=== PATIENT | male | born 1955 | race Caucasian/White ===

== ENCOUNTER 2022-03-15 10:25 | Day surgery (SDC) | payer MEDICARE ==
[2022-03-10 10:20] LABS: BASOPHILS % (AUTO) 0.4 % (0-1); EOSINOPHILS # (AUTO) 0.2 X10'3 (0-0.9); EOSINOPHILS % (AUTO) 3.2 % (0-6); HEMATOCRIT 40.9 % (42.0-52.0); HEMOGLOBIN 13.1 g/dl (14.0-17.9); LYMPHOCYTES # (AUTO) 0.8 X10'3 (1.1-4.8); LYMPHOCYTES % (AUTO) 14.1 % (21-51); MEAN CORPUSCULAR HEMOGLOBIN 29.1 PG (27.0-31.0); MEAN CORPUSCULAR HGB CONC 31.9 g/dL (33.0-36.5); MEAN CORPUSCULAR VOLUME 91.2 FL (78-98); MONOCYTES # (AUTO) 0.5 X10'3 (0-0.9); MONOCYTES % (AUTO) 9.4 % (2-12); NEUTROPHILS # (AUTO) 3.9 X10'3 (1.8-7.7); NEUTROPHILS % (AUTO) 72.9 % (42-75); PLATELET COUNT 225 X10'3 (140-440); RED BLOOD COUNT 4.49 X10'6 (4.70-6.10); WHITE BLOOD COUNT 5.4 X10'3 (4.5-11.0)
[2022-03-10 10:30] LABS: APTT 26 SECONDS (22-32)
[2022-03-10 10:32] LABS: ALBUMIN 3.8 G/DL (3.4-5.0); ANION GAP 6 (8-16); BLOOD UREA NITROGEN 43 MG/DL (7-18); CALCIUM 8.9 MG/DL (8.5-10.1); CHLORIDE 105 MMOL/L (99-107); CHOL/HDL RATIO 2.8 (0.00-4.99); CHOLESTEROL 113 MG/DL (0-200); CREATININE 1.87 MG/DL (0.60-1.10); GLUCOSE 105 MG/DL (70-104); HDL CHOLESTEROL 40 MG/DL (35-60); LDL CHOLESTEROL 64 MG/DL (50-100); POTASSIUM 4.9 MMOL/L (3.5-5.1); SODIUM 138 MMOL/L (135-145); TOTAL CARBON DIOXIDE 27.3 MMOL/L (24-32); TRIGLYCERIDES 69 MG/DL (20-135); eGFR 36 ML/MIN
[~2022-03-15] VITALS: Ht 185.4 cm; Wt 85.3 kg
[2022-03-15] VITALS (7 sets, daily range): BP systolic 126–160; BP diastolic 63–79
[~2022-03-15 10:25] MED LIST: AMIO200T67 PO; ASPI-1071 PO; ATOR10TA PO; HYDR-3972 PO; LOP25T PO; MULT-1085 PO; MV-M1TAB19 PO; OMEP40CA21 PO; RIVA15TA PO; SENN-283 PO; SYN0.088T PO; TACR1CAP2 PO; TACR1CAP24 PO
[2022-03-15] MEDS ORDERED: PANT40TA54 PO (10:49)
[2022-03-15] MEDS ORDERED: LOSA100T57 PO (10:49)
[2022-03-15] MEDS ORDERED: ASPI81TA52 PO (10:49)
[2022-03-15] MEDS ORDERED: CHOL200074 PO (10:49)
[2022-03-15] MEDS ORDERED: METO-395 PO (10:49)
[2022-03-15] MEDS ORDERED: ATOR10TA70 PO (10:49)
[2022-03-15] MEDS ORDERED: LORazepam 0.5 MG tablet PO PRN (11:25)
[2022-03-15] MEDS ORDERED: normal saline 1,000 ML IV SCH (11:25)
[2022-03-15] MEDS ORDERED: diphenhydrAMINE 25mg capsule PO PRN (11:25)
[2022-03-15] MEDS ORDERED: verapamil 2.5 mg/ml inj IV ONE (11:33)
[2022-03-15] MEDS ORDERED: midazolam 1 mg/ML 2ml injection ONE (11:33)
[2022-03-15] MEDS ORDERED: heparin 1,000unit/ml 10ml vial 10 ML ONE (11:34)
[2022-03-15] MEDS ORDERED: iohexol 350MG/ML 100ml bottle IV ONE ×2 (11:34→13:26)
[2022-03-15] MEDS ORDERED: LIDOcaine 1% (10mg/ml) 2ml vial ONE (11:34)
[2022-03-15] MEDS ORDERED: fentaNYL/PF 50MCG/1 ML 2ML syringe ONE (11:34)
[2022-03-15] MEDS ORDERED: nitroGLYCERIN-Tridil 50MG/D5W 250 ML IV ONE (11:34)
[2022-03-15] MEDS ORDERED: LIDOcaine 1% 30ml preserv. free vial ONE (13:15)
[2022-03-15] MEDS ORDERED: hydrALAZINE 20mg/ml inj. IV ONE (13:43)
== END 2022-03-15 16:05 | disposition home or self-care (01) ==
LOC: SSTAY O 10:25
PROVIDERS: ATTEND Student in an Organized Health Care Education/Training Program
DX: I25.810 Atherosclerosis of coronary artery bypass graft(s) without angina pectoris (principal); I13.0 Hypertensive heart and chronic kidney disease with heart failure and stage 1 through stage 4 chronic kidney disease, or unspecified chronic kidney disease; I50.22 Chronic systolic (congestive) heart failure; N18.9 Chronic kidney disease, unspecified; I48.91 Unspecified atrial fibrillation; K21.9 Gastro-esophageal reflux disease without esophagitis; Z94.4 Liver transplant status; Z79.899 Other long term (current) drug therapy
CPT/HCPCS: 36415; 76937; 80048; 80061; 85025; 85610; 85730; 93005; 93459; 99152; 99153; C1760; C1769; C1894; J0360; J1644; J2250; J3010; J3490; J7030; Q0163; Q9967; A6258; C1725

== ENCOUNTER 2022-03-23 18:35 | Emergency (ER) | payer MEDICARE ==
[~2022-03-23] VITALS: Ht 185.4 cm; Wt 84.9 kg
[~2022-03-23 18:35] MED LIST changes: -AMIO200T67 PO; -ASPI-1071 PO; +ASPI81TA52 PO; -ATOR10TA PO; +ATOR10TA70 PO; +CHOL200074 PO; -HYDR-3972 PO; -LOP25T PO; +LOSA100T57 PO; +METO-395 PO; -MV-M1TAB19 PO; -OMEP40CA21 PO; +PANT40TA54 PO; -RIVA15TA PO; -SENN-283 PO; -TACR1CAP2 PO
[2022-03-23 18:51] LABS: BASOPHILS % (AUTO) 0.5 % (0-1); EOSINOPHILS # (AUTO) 0.1 X10'3 (0-0.9); HEMATOCRIT 38.1 % (42.0-52.0); HEMOGLOBIN 12.4 g/dl (14.0-17.9); LYMPHOCYTES # (AUTO) 1.2 X10'3 (1.1-4.8); MEAN CORPUSCULAR HEMOGLOBIN 29.9 PG (27.0-31.0); MEAN CORPUSCULAR HGB CONC 32.5 g/dL (33.0-36.5); MEAN CORPUSCULAR VOLUME 91.8 FL (78-98); MEAN PLATELET VOLUME 8.6 FL (7.4-10.4); MONOCYTES # (AUTO) 0.7 X10'3 (0-0.9); MONOCYTES % (AUTO) 10.2 % (2-12); NEUTROPHILS # (AUTO) 4.9 X10'3 (1.8-7.7); NEUTROPHILS % (AUTO) 70.3 % (42-75); PLATELET COUNT 242 X10'3 (140-440); RED BLOOD COUNT 4.15 X10'6 (4.70-6.10); RED CELL DISTRIBUTION WIDTH 17.3 % (11.5-14.5); WHITE BLOOD COUNT 6.9 X10'3 (4.5-11.0)
[2022-03-23 19:00] VITALS: BP 128/75
[2022-03-23 19:07] LABS: ALANINE AMINOTRANSFERASE 15 U/L (12-78); ALBUMIN 3.7 G/DL (3.4-5.0); ALKALINE PHOSPHATASE 84 IU/L (46-116); ANION GAP 10 (8-16); ASPARTATE AMINO TRANSFERASE 14 U/L (10-37); BILIRUBIN,TOTAL 0.4 MG/DL (0.1-1.0); BLOOD UREA NITROGEN 37 MG/DL (7-18); BUN/CREATININE RATIO 22.3 (5.4-32.0); CALCIUM 9.1 MG/DL (8.5-10.1); CHLORIDE 103 MMOL/L (99-107); CREATININE 1.66 MG/DL (0.60-1.10); GLUCOSE 113 MG/DL (70-104); POTASSIUM 4.4 MMOL/L (3.5-5.1); SODIUM 139 MMOL/L (135-145); TOTAL CARBON DIOXIDE 26.4 MMOL/L (24-32); TOTAL PROTEIN 7.4 G/DL (6.4-8.2); eGFR 42 ML/MIN
[2022-03-23 19:14] LABS: MAGNESIUM 1.6 MG/DL (1.5-2.4)
== END 2022-03-23 20:07 | disposition left against medical advice (07) ==
LOC: ER 18:35
DX: R07.9 Chest pain, unspecified (principal); Z53.21 Procedure and treatment not carried out due to patient leaving prior to being seen by health care provider
CPT/HCPCS: 36415; 71045; 80053; 83735; 83880; 84484; 85025; 93005